=== PATIENT | female | born 2000 | race Two or more races ===

== ENCOUNTER 2025-08-31 23:16 | Emergency (ER) | payer OTHER ==
[~2025-08-31] VITALS: Ht 154.9 cm; Wt 52.2 kg
[2025-08-31] MEDS ORDERED: 0.9 % SODIUM CHLORIDE 1,000 ML IV ONE (23:45)
[2025-08-31] MEDS ORDERED: BUTALB/ACETAMINOPHEN/CAFFEINE 1 TAB TABLET PO PRN (23:45)
[2025-09-01 01:15] LABS: BASO % 1.0 % (0.1-1.2); EOS # 0.18 (0.04-0.54); EOS % 2.0 % (0.7-7.0); LYMPH # 2.43 (1.18-3.74); LYMPH % 27.1 % (19.3-53.1); MEAN PLATELET VOLUME 9.20 fl (9.4-12.4); MONO # 0.72 (0.24-0.82); MONO % 8.0 % (4.7-12.5); NEUT # 5.53 (1.56-6.13); NEUT % 61.8 % (34.0-71.1); RED CELL DISTRIBUTION WIDTH 12.7 % (11.6-14.4)
[2025-09-01 01:56] LABS: INR 1.0
[2025-09-01 02:03] LABS: ALT/SGPT 24 U/L (12-78); AST/SGOT 16 U/L (15-37); BILIRUBIN TOTAL 0.42 mg/dL (0.3-1.2); BUN CREA RATIO 23 (7.0-25.0); CREATININE SERUM 0.83 mg/dL (0.55-1.02); GFR 84.46; GLOBULINA 3.8 G/DL (2.4-3.5); GLUCOSE FASTING 115 mg/dL (65-100); OSMOLALITY SERUM 284 MOSM/KG (275-295)
[2025-09-01 02:06] LABS: COVID-19 AG NEGATIVE (NEGATIVE)
[2025-09-01 03:05] LABS: URINE APPEARANCE Clear; URINE BILIRRUBIN Negative (NEGATIVE); URINE BLOOD Negative; URINE COLOR Yellow; URINE GLUCOSE Negative (NEGATIVE); URINE KETONE Negative (NEGATIVE); URINE LEUKOCYTE Negative; URINE NITRATE Negative; URINE PROTEIN Negative (NEGATIVE); URINE UROBILINOGEN 0.2 E.U./dl
[2025-09-01 03:08] LABS: URINE BACTERIA 74.3 uL (0.0-1933); URINE EPITHELIAL CELLS 3.6 uL (0.0-38.8); URINE RBC 6.5 uL (0.0-20.8)
[2025-09-01 03:18] LABS: TYPE CELLS SQUAMOUS; URINE CAST 0.00 uL (0.0-1.40); URINE WBC 1.0 uL (0.0-23.2)
[2025-09-01] MEDS ORDERED: ZYRTEC10 M3 PO (03:55)
[2025-09-01 06:28] LABS: COCAINE NEGATIVE (NEGATIVE); OPIATES NEGATIVE (NEGATIVE); THC ( Cannabinoids) NEGATIVE (NEGATIVE)
[2025-09-01 07:46] LABS: METHADONE NEGATIVE (NEGATIVE)
== END 2025-09-01 04:25 | disposition home or self-care (01) ==
LOC: ER 23:16
PROVIDERS: Physician Assistant Medical
DX: J06.9 Acute upper respiratory infection, unspecified (principal); R00.1 Bradycardia, unspecified; Z20.822 Contact with and (suspected) exposure to COVID-19